=== PATIENT | female | born 1995 | race Caucasian/White ===

== ENCOUNTER 2020-11-21 02:10 | Emergency (ER) | payer MEDICARE, MEDICAID, SELFPAY ==
[2020-11-21 02:10] VITALS: BP 128/97; PULSE 120; RESP 20; TEMP 36.6; O2SAT 95
--- NOTE | 2020-11-21 02:15 | DI.RAD_ITS ---
Exam(s) XR PORTABLE CHEST AP EXAM: XR PORTABLE CHEST AP CLINICAL HISTORY: cough, sob, asthma, r/o infiltrate TECHNIQUE: 2D digital imaging was performed of the chest. One image was obtained. An AP view was ob tained. COMPARISON: No exams were available for comparison FINDINGS: MEDIASTINUM: Normal. HEART: Normal. PULMONARY VASCULATURE: Normal. LUNGS: Clear. PLEURAL SPACE: No pleural effusion or pneumothorax. BONE:Within normal limits for the patient's age. OTHER FINDINGS:Normal. IMPRESSION: No acute pulmonary findings. DATA REPOSITORY: RADIATION DOSE DELIVERED:
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
--- NOTE | 2020-11-21 02:18 | NUR.NOTE ---
Radiology at bedside for portable filmsNursing Note:
[2020-11-21] MEDS: predniSONE 20 MG TAB 60 MG PO (02:28)
[2020-11-21] MEDS: Albuterol/Ipratropium 3 ML UPD VIAL 9 ML UPD (02:28)
[2020-11-21] MEDS: Cyclobenzaprine 10 MG TAB PO (03:15)
[2020-11-21 03:16] VITALS: BP 110/78; PULSE 122; RESP 18; O2SAT 95
--- NOTE | 2020-11-21 03:27 | NUR.NOTE ---
[facility] called for patient transport home.Nursing Note:
--- NOTE | 2020-11-21 03:46 | DI.VRAD_ITS ---
PROCEDURE INFORMATION: Exam: XR Chest Exam date and time: 11/21/2020 2:15 AM Age: 24 years old Clinical indication: Cough and shortness of breath; Patient HX: Cough, SOB, asthma; Additional info: R/O infiltrate TECHNIQUE: Imaging protocol: XR of the chest. Views: 1 view. COMPARISON: No relevant prior studies available. FINDINGS: Lungs: No consolidation. Pleural spaces: Unremarkable. No pleural effusion. No pneumothorax. Heart/Mediastinum: Unremarkable. No cardiomegaly. Bones/joints: Unremarkable. IMPRESSION: No acute findings. Dictated and Authenticated by: Ab Boucher MD. Ordering:ANTHONY Prince MD
== END 2020-11-21 07:25 | disposition home or self-care (01) ==
LOC: ER 03:38
PROVIDERS: Emergency Provider Student in an Organized Health Care Education/Training Program; PCP Family Medicine
DX: J45.901 Unspecified asthma with (acute) exacerbation (principal)
CPT/HCPCS: 94640; 99283; 71045; J7512; J7620

== ENCOUNTER 2021-04-21 13:12 | Emergency (ER) | payer MEDICARE, MEDICAID, SELFPAY ==
[2021-04-21] VITALS (51 sets, daily range): BP systolic 89–142; BP diastolic 52–92; PULSE 72–114; RESP 24; TEMP 36.5; O2SAT 94–100
--- NOTE | 2021-04-21 13:24 | ED.GENADUL_ITS ---
Discharge Plan Disposition Patient Disposition: HOME Condition: Improving Discharge Details Clinical Impression: Biliary colic, Nausea and vomiting Primary Care Provider: Abbi Randall ED Provider: Carey Gautam Home Meds and New Rx's Prescriptions: New sucralfate [Carafate] 1 gram tablet 1 gm PO QACHS Qty: 14 0RF promethazine 25 mg tablet 25 mg PO TID PRN (Reason: nausea and vomiting) Qty: 7 0RF Continued dextroamphetamine-amphetamine 20 mg capsule,extended release 24hr 20 mg PO DAILY 0RF gabapentin 300 mg capsule 300 mg PO TID 0RF albuterol sulfate [Ventolin HFA] 90 mcg/actuation HFA aerosol inhaler 2 puff INHALATION DAILY 0RF Label Comments: INHALE 2 PUFFS BY MOUTH FOUR TIMES DAILY clonazepam 1 mg tablet 1 mg PO QHS [id number] Label Comments: Take 1 tablet by mouth once a day as needed Discharge Instructions Instructions: Biliary Colic (ED), Acute Nausea and Vomiting (ED), Abdominal Pain (ED) Additional Instructions: Your lab work today is reassuring and shows no evidence of acute concerning or significant findings. Your urine has been sent for a culture and you will be no tified of the results if they are positive for a bacterial infection. Your ultrasound showed evidence of a gallstone but no gallbladder infection. Your CT scan was reassuring and showed no evidence of acute obstruction or other acute concerning or significant findings. Drink plenty of fluids and get plenty of rest. Continue taking your omeprazole that you have at home. Take the Phenergan as needed and directed for nausea and vomiting. Take the Carafate as needed and directed for upper abdominal pain. Follow-up with your scheduled appointment for your EGD at [facility] next week. You can also follow-up with general surgery here for reevaluation if your symptoms do not improve or worsen. Return immediately to the emergency department if you develop any worsening or new concerning symptoms. Referrals: Chyna Mendez DO [OSTEOPATHIC DOCTOR] - Discharge Data Discharge Physician: Carey Gautam Medical Decision Making 1320 -- 25-year-old female with a history of complex regional pain syndrome presents for general malaise and intermittent vomiting and diarrhea for the last 3 weeks, worse over the last hour and blood-tinged. Blood pressure mildly elevated. Heart rate elevated. Patient appears uncomfortable and is actively vomiting upon my assessment. Abdomen otherwise soft. She has no significant abdominal tenderness, denies indication for abdominal imaging at this time. Will obtain screening labs and give fluids, Zofran, Ativan, Protonix and GI cocktail and reassess. 1400 -- Patient unable to take GI cocktail. She also had been requesting her dose of gabapentin but was unable to take this as she was feeling nauseous and vomiting again. She was referred for imaging due to her consistent upper abdominal pain and nausea and was noted to have sludge and gallstones. 1600 -- patient reassessed and she feels better. 1700 --patient reassessed and she continues to feel better. She was able to take her gabapentin and denies any further nausea or CT reviewed and notes mildly distended fluid-filled small bowel with fluid in the right colon but no obvious obstruction. 1900 --Case discussed and imaging reviewed with surgery and no acute recommendations. Can follow-up with surgery as an outpatient. Patient states she has a scheduled EGD at [facility] next week. She is advised to follow-up with this procedure and with GI for reevaluation. Advised that she can follow-up with surgery here if indicated. We will send with prescriptions for Phenergan and Carafate but she is advised to discuss with [facility] any recommendations regarding these medications. Medical Records Medical records reviewed: Yes I reviewed the patient's medical records. Imaging Data Radiologic Study: Radiologist's impression: US ABDOMEN LIMITED CLINICAL HISTORY: ? upper abd pain, r/o cholecystitis TECHNIQUE:? Ultrasound abdomen performed using standard protocol. COMPARISON:? No exams were available for comparison FINDINGS: LIVER: Normal size and? echogenicity.? No focal liver lesions are seen.. GALLBLADDER: Sludge.? Single stone..? No abnormal distension.? No evidence of wall thickening. No pericholecystic fluid identified. ENCARNACION'S SIGN: Patient unable to answer.? No obvious guarding. BILIARY SYSTEM: No intrahepatic or extrahepatic biliary ductal dilation. RIGHT KIDNEY: Normal size. No evidence of renal calculi. No evidence of hydronephrosis. No suspicious renal mass.? No cyst identified. PANCREAS: Normal where visualized. ABDOMINAL AORTA AND IVC: Visualized portions normal caliber. ASCITES: None seen. IMPRESSION: Gallbladder sludge and single stone.? No evidence of acute cholecystitis. CT ABDOMEN ? PELVIS W CLINICAL HISTORY: ? upper abd pain, vomiting, r/o acute process.? TECHNIQUE:? Imaging Protocol: Axial computed tomography images with coronal and sagittal reformatted images were created and reviewed CONTRAST MATERIAL:? Intravenous: Omnipaque 350 Contrast volume:100 ml Oral:? no COMPARISON:? No exams were available for comparison FINDINGS: ABDOMEN: Lung Bases: Normal where visualized. Liver: Normal density. No measurable mass. Gallbladder and biliary tract: No radiodense calculus or dilation.? Pancreas: Normal density, no abnormal calcifications or inflammatory process. Spleen: Normal. Kidneys: Normal size, contour and axis. No radiodense stones or obstructive uropathy. No masses seen. Adrenal glands: No masses seen. Abdominal Aorta: Abdominal portion non-dilated. PELVIS:? Bladder: Not well distended.? Question of wall thickening. Bowel: Fluid-filled? distal small bowel with mild dilatation.? Ascending colon containing fluid.? No abnormal gastric distension.? Appendix normal. Peritoneal cavity: No ascites, collection or mesenteric inflammatory response. Bones: Within normal limits for age.? Reproductive organs: Retroverted uterus with IUD in place.? Lymph nodes: Unremarkable.? Impression: Mildly distended fluid-filled small bowel.? Fluid in the right colon.? Results of this exam have been verbally communicated with provider. Lab Data Lab results reviewed: Yes I reviewed the patient's lab results. Labs: 04/21/21 16:30 Urine - Reflex from Ua Urine Culture - Pending Laboratory Tests Range/Units 04/21/21 04/21/21 04/21/21 13:20 13:20 16:09 WBC (4.4-10.8) 10^3/uL 11.75 H RBC (3.93-5.22) 10^6/uL 5.46 H Hgb (11.2-15.7) g/dL 15.6 Hct (36.0-46.0) % 47.3 H MCV (80-95) fL 86.6 MCH (27.0-33.0) pg 28.6 MCHC (32.0-36.0) % 33.0 RDW (11.7-14.6) % 12.6 Plt Count (130-400) 10^3/uL 309 MPV (8.0-11.0) fL 10.8 Immature Gran % 0.3 Neutrophils % 71.4 Lymphocytes % 22.4 Monocytes % 3.5 Eosinophils % 2.1 Basophils % 0.3 Nucleated RBC % % 0 Absolute Neutrophils (1.2-6.7) 10^3/uL 8.39 H Absolute Lymphocytes (1.2-3.4) 10^3/uL 2.63 Absolute Monocytes (0.1-0.8) 10^3/uL 0.41 Absolute Eosinophils (0.0-0.7) 10^3/uL 0.25 Absolute Basophils (0.0-0.2) 10^3/uL 0.04 Sodium (136-145) mmol/L 139 Potassium (3.5-5.1) mmol/L 4.1 Chloride (98-107) mmol/L 104 Carbon Dioxide (21.0-32.0) mmol/L 23.2 Anion Gap (3-11) mmol/L 11.8 H BUN (7-18) mg/dL 7 Creatinine (0.55-1.02) mg/dL 0.6 Estimated GFR/1.73 m2 (mL/min/1.73m2) >= 60.00 Glucose (74-106) mg/dL 93 Calcium (8.5-10.1) mg/dL 9.9 Total Bilirubin (0.2-1.0) mg/dL 0.6 AST (15-37) U/L 9 L ALT (14-59) U/L 15 Alkaline Phosphatase (46-116) U/L 77 Total Protein (6.4-8.2) g/dL 8.4 H Albumin (3.4-5.0) g/dL 4.5 Lipase (73-393) U/L 52 Serum HCG, Qual Cancelled Urine Color (Yellow) Urine Clarity (Clear) Urine pH (5-8) Ur Specific [place] (1.005-1.025) Urine Protein (Negative) mg/dL Urine Ketones (Negative) mg/dL Urine Blood (Negative) Urine Nitrite (Negative) Urine Bilirubin (Negative) Urine Urobilinogen (Up TO 0.2) EU/dL Ur Leukocyte Esterase (Negative) Urine RBC (0-2) HPF Urine WBC (0-5) HPF Ur Epithelial Cells (Negative) HPF Urine Crystals (Negative) HPF Urine Bacteria (Negative) HPF Urine Mucus (Negative) Ur Culture Indicated? Urine Glucose (Negative) mg/dL Range/Units 04/21/21 16:30 WBC (4.4-10.8) 10^3/uL RBC (3.93-5.22) 10^6/uL Hgb (11.2-15.7) g/dL Hct (36.0-46.0) % MCV (80-95) fL MCH (27.0-33.0) pg MCHC (32.0-36.0) % RDW (11.7-14.6) % Plt Count (130-400) 10^3/uL MPV (8.0-11.0) fL Immature Gran % Neutrophils % Lymphocytes % Monocytes % Eosinophils % Basophils % Nucleated RBC % % Absolute Neutrophils (1.2-6.7) 10^3/uL Absolute Lymphocytes (1.2-3.4) 10^3/uL Absolute Monocytes (0.1-0.8) 10^3/uL Absolute Eosinophils (0.0-0.7) 10^3/uL Absolute Basophils (0.0-0.2) 10^3/uL Sodium (136-145) mmol/L Potassium (3.5-5.1) mmol/L Chloride (98-107) mmol/L Carbon Dioxide (21.0-32.0) mmol/L Anion Gap (3-11) mmol/L BUN (7-18) mg/dL Creatinine (0.55-1.02) mg/dL Estimated GFR/1.73 m2 (mL/min/1.73m2) Glucose (74-106) mg/dL Calcium (8.5-10.1) mg/dL Total Bilirubin (0.2-1.0) mg/dL AST (15-37) U/L ALT (14-59) U/L Alkaline Phosphatase (46-116) U/L Total Protein (6.4-8.2) g/dL Albumin (3.4-5.0) g/dL Lipase (73-393) U/L Serum HCG, Qual Urine Color (Yellow) Yellow Urine Clarity (Clear) Clear Urine pH (5-8) 5.5 Ur Specific [place] (1.005-1.025) 1.010 Urine Protein (Negative) mg/dL Negative Urine Ketones (Negative) mg/dL Trace H Urine Blood (Negative) Negative Urine Nitrite (Negative) Negative Urine Bilirubin (Negative) Negative Urine Urobilinogen (Up TO 0.2) EU/dL 0.2 Ur Leukocyte Esterase (Negative) Trace H Urine RBC (0-2) HPF 0-2 Urine WBC (0-5) HPF 3-5 Ur Epithelial Cells (Negative) HPF Moderate Urine Crystals (Negative) HPF Negative Urine Bacteria (Negative) HPF Moderate Urine Mucus (Negative) Negative Ur Culture Indicated? Yes Urine Glucose (Negative) mg/dL Negative HPI General Mode of arrival: ambulatory . Date/Time Provider Initiated Documentation: 04/21/21 13:22 . Limitations to Documentation: no limitations . Information obtained by: patient . HPI Narrative: Patient is a 25-year-old female who presents with a complaint of not feeling well with decreased appetite and intermittent nausea and vomiting for the past few weeks, worse over the past hour with brown emesis with it appeared to be bright red streaks of blood. She states she has also had intermittent diarrhea over the last few weeks. She denies any recent antibiotic, sick contacts or travel. She does admit to some upper abdominal pain that mainly occurs with the nausea. She denies any known fever. She states she takes naltrexone for her complex regional pain syndrome but denies any recent alcohol or drug use. Related Data Home Medications Medication Instructions Recorded Confirmed albuterol sulfate 90 mcg/actuation 2 puff INHALATION DAILY 11/21/20 04/21/21 aerosol inhaler (Ventolin HFA) dextroamphetamine-amphetamine ER 20 mg PO DAILY 11/21/20 04/21/21 20 mg 24hr capsule,extend release gabapentin 300 mg capsule 300 mg PO TID 11/21/20 04/21/21 clonazepam 1 mg tablet 1 mg PO QHS PRN 04/21/21 04/21/21 promethazine 25 mg tablet 25 mg PO TID PRN #7 tab 04/21/21 sucralfate 1 gram tablet (Carafate) 1 gm PO QACHS #14 tab 04/21/21 Previous Rx's Medication Instructions Recorded promethazine 25 mg tablet 25 mg PO TID PRN #7 tab 04/21/21 sucralfate 1 gram tablet (Carafate) 1 gm PO QACHS #14 tab 04/21/21 Allergies Allergy/AdvReac Type Severity Reaction Status Date / Time diclofenac Allergy Wheezing Unverified 11/21/20 02:18 morphine Allergy Other (See Unverified 11/21/20 02:17 Comment) soy Allergy Other (See Unverified 11/21/20 02:18 Comment) General Stated Complaint: Abd Prob LIZ: 2 Review of Systems All systems reviewed & are unremarkable except as noted in HPI and below Constitutional Constitutional: Reports as per HPI, Denies chills and Denies fever(s) Eyes Eyes: Denies blurry vision ENT Ears, Nose, Mouth, and Throat: Denies dizziness, Denies sore throat and Denies throat swelling Cardiovascular Cardiovascular: Denies chest pain and Denies dyspnea Respiratory Respiratory: Denies cough and Denies dyspnea Gastrointestinal Gastrointestinal: Denies abdominal pain, Denies diarrhea and Reports hematemesis Genitourinary Genitourinary: Denies hematuria and Denies dysuria Musculoskeletal Musculoskeletal: Denies back pain and Denies numbness Integumentary/Breasts Skin/Breast: Denies lesions and Denies rash Neurologic Neurologic: Denies dizziness, Denies localized weakness and Denies numbness Allergic/Immunologic Allergic/Immunologic: Denies throat swelling PFSH All Active Problems (Updated 04/21/21 @ 17:12 by Carey Gautam DO) Biliary colic (Acute) Nausea and vomiting (Acute) Asthma exacerbation (Acute) Medical History (Updated 04/21/21 @ 17:12 by Carey Gautam DO) Complex regional pain syndrome Surgical History (Updated 04/21/21 @ 14:10 by Carey Gautam DO) No significant past surgical history Social History Smoking/Tobacco Use Status: Never Smoking risk assessment performed?: Yes Alcohol Intake: never Drug use: Occasionally Substance use type: marijuana Do you feel safe at home: Yes Do you feel safe in your relationship?: Yes Exam Const General: cooperative and acute distress (nauseous, actively vomiting) Orientation: alert, awake and oriented x3 HENMT Head: normal to inspection Mouth: oral mucosae normal Eyes General: appearance normal, both eyes and all related structures Neck Neck: normal visual inspection Resp Effort & Inspection: normal respiratory effort and able to speak in complete sentences Auscultation: clear to auscultation bilaterally Cardio Rate: regular rate Rhythm: regular rhythm GI Inspection: normal to inspection Palpation: soft, not firm, no guarding, not rigid and nontender Skin General skin exam: no rashes or lesions noted Neuro General: patient alert, patient awake and patient oriented x3 Motor: muscle tone normal throughout Extrem General: normal to inspection and full ROM Psych Appearance: grossly normal Affect: normal affect Course Vital Signs Vital signs: Vital Signs Temperature 97.7 F 04/21/21 13:14 Pulse 114 H 04/21/21 13:14 Respiratory Rate 24 04/21/21 13:14 Blood Pressure 142/91 H 04/21/21 13:14 Pulse Oximetry 95 04/21/21 13:14 Temperature 97.7 F 04/21/21 13:14 Temperature Source Temporal Artery Scan 04/21/21 13:14 Pulse 114 H 04/21/21 13:14 Respiratory Rate 24 04/21/21 13:14 Respiratory Effort 04/21/21 13:20 Blood Pressure 142/91 H 04/21/21 13:14 Blood Pressure Position Sitting 04/21/21 13:14 Pulse Oximetry 95 04/21/21 13:14 Oxygen Delivery Method Room Air 04/21/21 13:14 Oxygen Flow Rate 0 04/21/21 13:14 Pain Level 9 04/21/21 13:14
[2021-04-21 13:42] LABS: Abs Immature Grans 0.03 10^3/uL (0.0-0.06); Absolute Eosinophil Count 0.25 10^3/uL (0.0-0.7); Absolute Lymphocyte Count 2.63 10^3/uL (1.2-3.4); Absolute Monocyte Count 0.41 10^3/uL (0.1-0.8); Basophils % 0.3; Eosinophils % 2.1; HCT 47.3 % (36.0-46.0); HGB 15.6 g/dL (11.2-15.7); Immature Grans % 0.3; Lymphocytes % 22.4; MCH 28.6 pg (27.0-33.0); MCV 86.6 fL (80-95); MPV 10.8 fL (8.0-11.0); Monocytes % 3.5; Neutrophils % 71.4; Nucleated RBC 0 %; Platelet Count 309 10^3/uL (130-400); RBC 5.46 10^6/uL (3.93-5.22); RDW 12.6 % (11.7-14.6); RDW-SD 39.8 fL; WBC 11.75 10^3/uL (4.4-10.8)
[2021-04-21 13:44] LABS: Absolute Basophil Count 0.04 10^3/uL (0.0-0.2); Absolute Neutrophil Count 8.39 10^3/uL (1.2-6.7)
[2021-04-21 13:58] LABS: ALT 15 U/L (14-59); AST 9 U/L (15-37); Albumin 4.5 g/dL (3.4-5.0); Alkaline Phosphatase 77 U/L (46-116); Anion Gap 11.8 mmol/L (3-11); BUN 7 mg/dL (7-18); Bilirubin, Total 0.6 mg/dL (0.2-1.0); CO2 23.2 mmol/L (21.0-32.0); CREATININE 0.6 mg/dL (0.55-1.02); Calcium 9.9 mg/dL (8.5-10.1); Chloride 104 mmol/L (98-107); Glucose 93 mg/dL (74-106); Lipase 52 U/L (73-393); Potassium 4.1 mmol/L (3.5-5.1); Sodium 139 mmol/L (136-145); Total Protein 8.4 g/dL (6.4-8.2)
[2021-04-21] MEDS: Normal Saline 1,000 ML 1000 ML IV ×2 (14:19→15:03)
[2021-04-21] MEDS: Normal Saline Flush 10 ML SYR IVP ×3 (14:19→15:57)
[2021-04-21] MEDS: Ondansetron 4 MG/2 ML VIAL IVP (14:20)
[2021-04-21] MEDS: LORazepam 2 MG/ML VIAL 0.5 MG IVP (14:20)
[2021-04-21] MEDS: Pantoprazole 40 MG VIAL IVP (14:20)
[2021-04-21] MEDS: Gabapentin 300 MG CAP 600 MG PO (14:48)
[2021-04-21] MEDS: LORazepam 2 MG/ML VIAL 1 MG IVP (15:28)
--- NOTE | 2021-04-21 15:30 | DI.US_ITS ---
Exam(s) US ABDOMEN LIMITED EXAM: US ABDOMEN LIMITED CLINICAL HISTORY: upper abd pain, r/o cholecystitis TECHNIQUE: Ultrasound abdomen performed using standard protocol. COMPARISON: No exams were available for comparison FINDINGS: LIVER: Normal size and echogenicity. No focal liver lesions are seen.. GALLBLADDER: Sludge. Single stone.. No abnormal distension. No evidence of wall thickening. No per icholecystic fluid identified. ENCARNACION'S SIGN: Patient unable to answer. No obvious guarding. BILIARY SYSTEM: No intrahepatic or extrahepatic biliary ductal dilation. RIGHT KIDNEY: Normal size. No evidence of renal calculi. No evidence of hydronephrosis. No suspicious renal mass. No cyst identified. PANCREAS: Normal where visualized. ABDOMINAL AORTA AND IVC: Visualized portions normal caliber. ASCITES: None seen. IMPRESSION: Gallbladder sludge and single stone. No evidence of acute cholecystitis.. DATA REPOSITORY:
--- NOTE | 2021-04-21 15:30 | DI.CT_ITS ---
Exam(s) CT ABDOMEN PELVIS W EXAM: CT ABDOMEN PELVIS W CLINICAL HISTORY: upper abd pain, vomiting, r/o acute process. TECHNIQUE: Imaging Protocol: Axial computed tomography images with coronal and sagittal reformatted images were created and reviewed CONTRAST MATERIAL: Intravenous: Omnipaque 350 Contrast volume:100 ml Oral: no COMPARISON: No exams were available for comparison FINDINGS: ABDOMEN: Lung Bases: Normal where visualized. Liver: Normal density. No measurable mass. Gallbladder and biliary tract: No radiodense calculus or dilation. Pancreas: Normal density, no abnormal calcifications or inflammatory process. Spleen: Normal. Kidneys: Normal size, contour and axis. No radiodense stones or obstructive uropathy. No masses seen. Adrenal glands: No masses seen. Abdominal Aorta: Abdominal portion non-dilated. PELVIS: Bladder: Not well distended. Question of wall thickening. Bowel: Fluid-filled distal small bowel with mild dilatation. Ascending colon containing fluid. No abnormal gastric distension. Appendix normal. Peritoneal cavity: No ascites, collection or mesenteric inflammatory response. Bones: Within normal limits for age. Reproductive organs: Retroverted uterus with IUD in place. Lymph nodes: Unremarkable. Impression: Mildly distended fluid-filled small bowel. Fluid in the right colon. Results of this exam have been verbally communicated with provider. RADIATION DOSE DELIVERED: 828.42mGy.cm Total DLP DATA REPOSITORY: All CT scans at this facility are submitted to the National Radiology Data Registry (NRDR) Dose Index Registry (DIR) with the [employer] ([employer]). RADIATION OPTIMIZATION: All CT scans at this facility use at least one of these dose optimization te chniques: automated exposure control; mA and/or kV adjustment per patient size (includes targeted exa ms where dose is matched to clinical indication); or iterative reconstruction.
[2021-04-21] MEDS: ACETAMINOPHEN 1,000 MG/100 ML BTL 400 MG IVPB (15:40)
[2021-04-21 16:41] LABS: Bilirubin Negative (Negative); Blood Negative (Negative); Clarity Clear (Clear); Glucose Negative (Negative); Ketones Trace mg/dL (Negative); Leukocyte Esterase Trace (Negative); Nitrite Negative (Negative); Urobilinogen 0.2 EU/dL (Up TO 0.2); pH 5.5 (5-8)
[2021-04-21 16:50] LABS: Bacteria Moderate HPF (Negative); C & S Indicated? Yes; Crystals Negative HPF (Negative); Epithelial Cells Moderate HPF (Negative); Mucus Negative (Negative); RBC 0-2 HPF (0-2)
[2021-04-21] MEDS: Omnipaque 350 MG/ML 100 ML BTL IJ (16:50)
== END 2021-04-21 19:47 | disposition home or self-care (01) ==
PROVIDERS: Emergency Provider Physician Assistant; PCP Family Medicine
DX: K80.50 Calculus of bile duct without cholangitis or cholecystitis without obstruction (principal); R11.2 Nausea with vomiting, unspecified; R10.10 Upper abdominal pain, unspecified
CPT/HCPCS: 36415; 80053; 83690; 96361; 96365; 96367; 96375; 96376; 99285; 74177; 76705; 81003; 81015; 84703; 85025; 87086; 99284; J0131; J2060; J2405; J3490